=== PATIENT | male | born 2000 | race Caucasian/White ===

== ENCOUNTER 2024-02-03 20:53 | Emergency (ER) | payer OTHER, SELFPAY ==
[2024-02-03 20:54] VITALS: BP 144/88; BMI 42.4
--- NOTE | 2024-02-03 21:31 | ED.GENMED ---
History of Present Illness
General
Chief Complaint: Musculo-Skeletal Complaint
Time Seen by Provider: 02/03/24 21:02
Travel History
Have you had any contact with someone who has COVID-19?: No
Do you have any symptoms of coronavirus? Fever > 100 degrees, chills, cough, shortness of breath, sore throat, loss of taste or smell, muscle aches, or headache?: No
History of Present Illness
History of Present Illness:
23-year-old male presents to the emergency department for evaluation of right knee pain and suspected patellar dislocation that occurred when landing from the air during a volleyball match. EMS reports that his knee was visibly dislocated however
when a lifted him onto the EMS stretcher. Patient reports this has happened once in the past.
Review of Systems
Review of Systems
Allergies reviewed?: Yes
All Other Systems: ROS reviewed and negative except as documented in HPI and ROS
Phy Exam
Physical Exam
Physical Exam:
GEN: Well appearing, NAD, WDWN
HEENT: Oral mucosa moist, no scleral icterus
Cardiac: Regular rate
Lung: No respiratory distress, no tachypnea
MSK: Mild swelling to the prepatellar right knee, no joint effusion, range of motion normal patella brace to prevent redislocation
Skin: Good color, no pallor or jaundice, no rashes
Neuro: AO x3, moves all extremities freely
Psych: Calm, cooperative
Course
Orders/Labs/Results
Orders:
Orders
02/03/24 20:54
Knee, Right 4 or More Views [CR Knee- Right 4 Or More View*] Urgent
Comment:
Reason For Exam: injury
Vital Signs
Initial and Last Documented VS:
Initial Vital Signs
Temp Pulse Resp BP Pulse Ox
98.5 F 108 24 144/88 99
02/03/24 20:54 02/03/24 20:54 02/03/24 20:54 02/03/24 20:54 02/03/24 20:54
Last Documented Vital Signs
Temp Pulse Resp BP Pulse Ox
98.5 F 108 24 144/88 99
02/03/24 20:54 02/03/24 20:54 02/03/24 20:54 02/03/24 20:54 02/03/24 20:54
MDM/Problems Addressed
MDM/Problems Addressed:
Patient is placed in a knee immobilizer for suspected patellar dislocation/subluxation. Recommend outpatient orthopedic follow-up, he does not live locally thus we will follow-up in his town
*Critical Care Note
Total Time (30-74mins, 75-104mins- exclusive of procedures): Not Applicable
ED Attending Note
-
Portions of this chart may have been created with voice recognition software.� Occasional wrong word or��sound alike� substitutions may have occurred due to the inherent limitations of voice recognition software.
Discharge Plan
Departure
Patient Disposition: Home (Routine Discharge)
Date of Disposition: 02/03/24
Time of Disposition: 21:31
Patient with high blood pressure during this ER visit?: No
Discharge Problem:
Closed dislocation of right patella
Instructions: Dislocated Kneecap (DC)
Activity Restrictions/Additional Instructions:
Follow up with an Orthopedic doctor in your local area in 1-2 weeks regarding your knee dislocation
Interventions
Interventions:
*Risk Screen - Suicide Last Done: 02/03/24 20:54
*General Assessment Last Done: 02/03/24 20:54
*Neglect/Abuse Screening Last Done: 02/03/24 20:54
*ED COVID-19 Vaccine History Last Done: 02/03/24 20:54
*Nursing Disposition Last Done: 02/03/24 21:54
ED-Musculoskeletal Assessment Last Done: 02/03/24 20:57
Discharge Date and Time
Discharge Date/Time: 02/03/24 21:54
Print Language: BELGIAN
== END 2024-02-03 21:54 | disposition home or self-care (01) ==
LOC: EMR 20:53
PROVIDERS: EMERGENCY PHYSICIAN Student in an Organized Health Care Education/Training Program; FAMILY PHYSICIAN Family Medicine
DX: S83.004A Unspecified dislocation of right patella, initial encounter (principal); X58.XXXA Exposure to other specified factors, initial encounter
CPT/HCPCS: 99283; 29505; 73564